=== PATIENT | male | born 1945 | race Caucasian/White ===

== ENCOUNTER 2017-05-22 19:48 | Inpatient (IN) | payer OTHER ==
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
[2017-05-22 20:29] LABS: PLATELET COUNT 210 10^3/uL (150-400)
[2017-05-22 20:39] LABS: INR 0.95 (0.83-1.16); PROTIME(PATIENT) 12.6 SEC (12.0-15.0)
[2017-05-22] MEDS ORDERED: IOPAMIDOL (ISOVUE-300) 100 ML BTL ONE (20:40)
[2017-05-22] MEDS ORDERED: HYDROCODONE/APAP 5/325 TAB PO ONE (21:50)
[2017-05-22] MEDS ORDERED: CYCLOBENZAPRINE 10 MG TAB PO ONE (21:51)
[2017-05-22] MEDS ORDERED: KETOROLAC 30 MG/1 ML SDV IVP ONE (22:29)
[2017-05-22] MEDS ORDERED: ONDANSETRON DISINTEGRATING 4 MG TAB PO PRN (22:36)
[2017-05-22] MEDS ORDERED: ACETAMINOPHEN 325 MG TAB PO PRN (22:36)
[2017-05-22] MEDS: KETOROLAC 15 MG/1 ML SDV IVP SCH (23:11)
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
[2017-05-23] MEDS: KETOROLAC 15 MG/1 ML SDV IVP SCH ×4 (06:31→23:51)
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
--- NOTE | 2017-05-23 12:33 | ASMTCMCOM ---
CM Note CM Note Notes: Pt cleared by PT/OT for home, anticipate will dc home w/support of his when medically stable. CM availale for any changes. Date Signed: 05/23/2017 12:33 PM Electronically Signed By:Lindsay Randolph RN
[2017-05-23] MEDS ORDERED: FLUTICASONE NASAL 120 SPRAYS/16 GM MDI EACHNARE PRN (15:54)
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
--- NOTE | 2017-05-23 16:08 | CPEKG ---
Heart Rate: 63 RR Interval: 952 P-R Interval: 160 QRSD Interval: 86 QT Interval: 424 QTC Interval: 435 P [place]: 64 QRS [place]: 64 T Wave [place]: 57 EKG Severity - ABNORMAL ECG - EKG Impression: SINUS RHYTHM EKG Impression: MULTIPLE VENTRICULAR PREMATURE COMPLEXES Electronically Signed By: Earnest Loyola 23-May-2017 17:37:42
--- NOTE | 2017-05-23 16:08 | CPEKG ---
Heart Rate: 63 RR Interval: 952 P-R Interval: 160 QRSD Interval: 86 QT Interval: 424 QTC Interval: 435 P [place]: 64 QRS [place]: 64 T Wave [place]: 57 EKG Severity - ABNORMAL ECG - EKG Impression: SINUS RHYTHM EKG Impression: MULTIPLE VENTRICULAR PREMATURE COMPLEXES Electronically Signed By: Earnest Loyola 23-May-2017 17:37:42
[2017-05-23] MEDS ORDERED: PROTOCOL MAGNESIUM 1 DOSE IV PRN (17:33)
[2017-05-23] MEDS ORDERED: PROTOCOL POTASSIUM 1 DOSE MISC PRN (17:33)
[2017-05-23] MEDS ORDERED: POTASSIUM CL 10 MEQ TAB PO ONE (19:54)
[2017-05-23] MEDS ORDERED: ATORVASTATIN CALCIUM 10 MG TAB PO SCH (21:00)
[2017-05-23] MEDS: HYDROCODONE/APAP 5/325 TAB PO PRN (22:58)
[2017-05-24] MEDS: HYDROCODONE/APAP 5/325 TAB PO PRN (04:47)
[2017-05-24 06:03] LABS: PLATELET COUNT 162 10^3/uL (150-400)
[2017-05-24] MEDS: KETOROLAC 15 MG/1 ML SDV IVP SCH ×2 (06:12→13:02)
[2017-05-24] MEDS ORDERED: LIDOCAINE 5% 1 EA PATCH TD SCH (09:00)
[2017-05-24] MEDS ORDERED: PANTOPRAZOLE SODIUM 40 MG TAB PO SCH (09:00)
[2017-05-24] MEDS ORDERED: ENALAPRIL MALEATE 20 MG TAB PO SCH (09:00)
[2017-05-24] MEDS ORDERED: MONTELUKAST SODIUM 10 MG TAB PO SCH (09:00)
[2017-05-24] MEDS ORDERED: Herbals/Supplements -Info Only PO SCH (09:00)
[2017-05-24] MEDS ORDERED: CHOLECALCIFEROL VIT D3 2,000 UNITS TAB/CAP PO SCH (09:00)
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
[2017-05-24 11:33] VITALS: BP 134/63; PULSE 66; RESP 20; TEMP 98.5; O2SAT 94
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
[2017-05-24] MEDS ORDERED: PATCH REMOVAL 1 EA PATCH TD SCH (21:00)
--- NOTE | 2017-05-25 09:45 | ASDISCHSUM ---
Discharge Information Plan Status:Home with No Needs Medically Cleared to Leave: Discharge Date:05/24/2017 02:16 PM CM D/C Disposition:Home, Routine, Self-Care ADT D/C Disposition:Home, Routine, Self-Care Projected Discharge Date:05/24/2017 02:16 PM Transportation at D/C:Family Discharge Delay Reason: Follow-Up Date:05/24/2017 02:16 PM Discharge Slot: Final Diagnosis: Placement Information Patient Contact Information Contact Name:DANITA Relationship: Address:[address] [place] [address] Work Phone: City:[place] Alternate Phone: [facility]/Zip Code:[place] [address] Email: Financial Information Financial Class:Medicare Advantage Plans Primary Plan Desc:[facility] ADVANTAGE PLANS Primary Plan Number:[id number] Secondary Plan Desc: Secondary Plan Number: Assessment Information [facility] CM Progress Note CM Note CM Note Notes: Pt cleared by PT/OT for home, anticipate will dc home w/support of his when medically stable. CM availale for any changes. Date Signed: 05/23/2017 12:33 PM Electronically Signed By:Lindsay Randolph RN Intervention Information Intervention Type:*SPEARS-Signed Date of Service:05/23/2017 12:40 PM Patient Type:Observation Staff Member:Lola Ma Hours: Discipline: Severity: Comment:
--- NOTE | 2017-05-25 09:45 | ASDISCHSUM ---
Discharge Information Plan Status:Home with No Needs Medically Cleared to Leave: Discharge Date:05/24/2017 02:16 PM CM D/C Disposition:Home, Routine, Self-Care ADT D/C Disposition:Home, Routine, Self-Care Projected Discharge Date:05/24/2017 02:16 PM Transportation at D/C:Family Discharge Delay Reason: Follow-Up Date:05/24/2017 02:16 PM Discharge Slot: Final Diagnosis: Placement Information Patient Contact Information Contact Name:DANITA Relationship: Address:[address] [place] [address] Work Phone: City:[place] Alternate Phone: [facility]/Zip Code:[place] [address] Email: Financial Information Financial Class:Medicare Advantage Plans Primary Plan Desc:[facility] ADVANTAGE PLANS Primary Plan Number:[id number] Secondary Plan Desc: Secondary Plan Number: Assessment Information [facility] CM Progress Note CM Note CM Note Notes: Pt cleared by PT/OT for home, anticipate will dc home w/support of his when medically stable. CM availale for any changes. Date Signed: 05/23/2017 12:33 PM Electronically Signed By:Lindsay Randolph RN Intervention Information Intervention Type:*SPEARS-Signed Date of Service:05/23/2017 12:40 PM Patient Type:Observation Staff Member:Lola Ma Hours: Discipline: Severity: Comment:
--- NOTE | 2017-05-25 09:45 | ASDISCHSUM ---
Discharge Information Plan Status:Home with No Needs Medically Cleared to Leave: Discharge Date:05/24/2017 02:16 PM CM D/C Disposition:Home, Routine, Self-Care ADT D/C Disposition:Home, Routine, Self-Care Projected Discharge Date:05/24/2017 02:16 PM Transportation at D/C:Family Discharge Delay Reason: Follow-Up Date:05/24/2017 02:16 PM Discharge Slot: Final Diagnosis: Placement Information Patient Contact Information Contact Name:DANITA Relationship: Address:[address] [place] [address] Work Phone: City:[place] Alternate Phone: [facility]/Zip Code:[place] [address] Email: Financial Information Financial Class:Medicare Advantage Plans Primary Plan Desc:[facility] ADVANTAGE PLANS Primary Plan Number:[id number] Secondary Plan Desc: Secondary Plan Number: Assessment Information [facility] CM Progress Note CM Note CM Note Notes: Pt cleared by PT/OT for home, anticipate will dc home w/support of his when medically stable. CM availale for any changes. Date Signed: 05/23/2017 12:33 PM Electronically Signed By:Lindsay Randolph RN Intervention Information Intervention Type:*SPEARS-Signed Date of Service:05/23/2017 12:40 PM Patient Type:Observation Staff Member:Lola Ma Hours: Discipline: Severity: Comment:
== END 2017-05-24 14:16 | disposition home or self-care (01) | DRG 184 ==
LOC: INTOOBSV 21:53 → F3E 22:43 → OBSVTOIN 05-23 16:05
PROVIDERS: ADMIT Internal Medicine; ATTEND Surgery
DX: S22.42XA Multiple fractures of ribs, left side, initial encounter for closed fracture (principal); S27.321A Contusion of lung, unilateral, initial encounter; R31.9 Hematuria, unspecified; R00.1 Bradycardia, unspecified; M48.54XA Collapsed vertebra, not elsewhere classified, thoracic region, initial encounter for fracture; M48.56XA Collapsed vertebra, not elsewhere classified, lumbar region, initial encounter for fracture; I10 Essential (primary) hypertension; E78.00 Pure hypercholesterolemia, unspecified; K21.9 Gastro-esophageal reflux disease without esophagitis; K40.90 Unilateral inguinal hernia, without obstruction or gangrene, not specified as recurrent; J30.9 Allergic rhinitis, unspecified; V18.0XXA Pedal cycle driver injured in noncollision transport accident in nontraffic accident, initial encounter; Y93.55 Activity, bike riding; Y92.9 Unspecified place or not applicable
CPT/HCPCS: 82947-QW; 96374; 97161-GP; 97165-GO; G0378; G8978-GP-CI; G8980-GP-CI; G8987-GO-CI; G8988-GO-CI; G8989-GO-CI; J1885; Q9967

== ENCOUNTER → 2017-07-17 | Outpatient (CLI) | payer OTHER | LOC: FIMAGING 14:50 | PROVIDERS: ATTEND Surgery | DX: S22.42XD Multiple fractures of ribs, left side, subsequent encounter for fracture with routine healing (principal); J98.4 Other disorders of lung ==